=== PATIENT | female | born 1930 | race Caucasian/White ===

== ENCOUNTER 2018-05-20 11:20 | Observation (INO) ==
[2018-05-20] MEDS ORDERED: Orphenadrine Inj 60 MG/2 ML Ampul IM ONE (12:01)
--- NOTE | 2018-05-20 12:02 | ED ---
HPI General Chief Complaint: Back Pain/Injury Stated Complaint: Back pain Time Seen by Provider: 05/20/18 11:47 Source: patient and family Mode of arrival: ambulatory Limitations: physical limitation (hard of hearing) History of Present Illness HPI Narrative: 87-year-old female presents to the emergency department for evaluation of low back pain that has been persistent since a fall approximately 1 week ago. Some of the history is obtained by the patient's 's caregiver. patient was in the emergency department approximately 1 week ago, had a CT which did not demonstrate a fracture. Patient was diagnosed with urinary tract infection and prescribed Macrobid. Patient currently has 5 pills left in her prescription bottle. Patient continues to have low back pain focused in the lower back without radiation of pain. Described as aching and '12 /10' in severity. Patient denies numbness or tingling of the groin, fever, chills, loss of bowel or bladder function. Patient states the pain is persistent but does not believe it has worsened. She denies excessive rest or activity. Says 2 days ago she went to her primary care physician who ordered meloxicam and gabapentin for her pain. Patient states that since she started taking gabapentin she has felt "dizzy". Her caregiver is concerned that patient may fall again resulting in worsening injury. The caregiver states she brought patient to the ED because her primary care physician was unable to see her today. MD Complaint: back pain Related Data Home Medications Medication Instructions Recorded Confirmed aspirin [Aspir-81] 81 mg PO DAILY 05/14/18 05/20/18 calcium carbonate-vitamin D3 2 tab PO DAILY 05/14/18 05/20/18 [Calcium 600 + D(3)] carbamazepine 200 mg PO BID 05/14/18 05/20/18 doxazosin 8 mg PO BID 05/14/18 05/20/18 levothyroxine 100 mcg PO DAILY 05/14/18 05/20/18 metoprolol tartrate 25 mg PO BID 05/14/18 05/20/18 nifedipine 30 mg PO DAILY 05/14/18 05/20/18 spironolactone 50 mg PO DAILY PRN 05/14/18 05/20/18 calcium carbonate-vitamin D3 1 tab PO DAILY 05/20/18 05/20/18 [Calcium 600 with Vitamin D3] cholecalciferol (vitamin D3) 5,000 unit PO DAILY 05/20/18 05/20/18 [Vitamin D3] fluticasone 1 spray INTRANASAL DAILY 05/20/18 05/20/18 gabapentin 100 mg PO TID 05/20/18 05/20/18 lovastatin 40 mg PO DAILY 05/20/18 05/20/18 meloxicam 7.5 mg PO DAILY 05/20/18 05/20/18 multivitamin 1 tab PO DAILY 05/20/18 05/20/18 potassium gluconate 595 mg PO DAILY 05/20/18 05/20/18 prednisone 10 mg PO DAILY 05/20/18 05/20/18 vitamin B complex 1 tab PO DAILY 05/20/18 05/20/18 vitamin E 400 units PO DAILY 05/20/18 05/20/18 Previous Rx's Medication Instructions Recorded nitrofurantoin monohyd/m-cryst 100 mg PO BID 7 Days #14 cap 05/14/18 [Macrobid] Allergies Allergy/AdvReac Type Severity Reaction Status Date / Time penicillin G Allergy Severe Rash Verified 05/20/18 11:57 Review of Systems ROS: all other systems reviewed are negative [facility] Medical History Medical History Atherosclerosis (Acute) Atrioventricular bloc first degree (Acute) Breast CA (Acute) DJD (degenerative joint disease) (Acute) Epilepsy (Acute) Hypothyroid (Acute) Lumbar spinal stenosis (Acute) Pancreatic cyst (Acute) Peripheral neuropathy (Acute) UTI (urinary tract infection) (Acute) Vertigo (Acute) HTN (hypertension) (Acute) Hyperlipidemia (Acute) Surgical History Surgical History History of (Acute) Social History Social History Substance History: No History of Abuse Smoking Status: Former smoker How Often Do You Have a Drink Containing Alcohol: Never Recent Travel in [facility] within the Last 8 Weeks: No Recent Out of Country Travel within the Last 8 Weeks: No Immunization History Tetanus Immunization: Unsure Exam Narrative Exam Narrative: GENERAL: Well-developed, well-nourished in no apparent distress , resting comfortably in bed SKIN: Focused skin assessment warm/dry. HEAD: Atraumatic. Normocephalic. EYES: Pupils equal and round. No scleral icterus. No injection or drainage. ENT: No nasal bleeding or discharge. Mucous membranes pink and moist. NECK: Trachea midline. No JVD. CARDIOVASCULAR: Regular rate and rhythm. No murmur appreciated. RESPIRATORY: No accessory muscle use. Clear to auscultation. Breath sounds equal bilaterally. GASTROINTESTINAL: Abdomen soft, non-tender, nondistended. Hepatic and splenic margins not palpable. BACK: No CVA tenderness. No rash. No point tenderness on palpation of the spine. MUSCULOSKELETAL: No obvious deformities. No clubbing. No cyanosis. No edema. NEUROLOGICAL: Awake and alert. No obvious cranial nerve deficits. Motor grossly within normal limits. Normal speech. PSYCHIATRIC: Appropriate mood and affect; insight and judgment normal. Course Initial Documented Vital Signs Temperature 97.9 F 05/20/18 11:37 Pulse Rate 62 05/20/18 11:37 Respiratory Rate 18 05/20/18 11:37 Blood Pressure 163/74 H 05/20/18 11:37 Pulse Oximetry 98 05/20/18 11:37 Last Documented Vital Signs Temperature 97.9 F 05/20/18 11:37 Pulse Rate 63 05/20/18 15:41 Respiratory Rate 19 05/20/18 15:41 Blood Pressure 187/79 H 05/20/18 15:41 Pulse Oximetry 95 05/20/18 15:41 Medical Decision Making BILLY Attestation BILLY supervised visit: Yes Attestation: I, Dr. Morales, have reviewed the advance practice practitioner's documentation and am in agreement, met with the patient face to face, made the diagnosis, and the medical decision making was done by me. *My assessment and Findings: Patient is an 87-year-old female who presents with persistent urinary tract infection despite completing more than 5 days of antibiotics. She also complains of persistent back pain that has been intractable at home. She is hemodynamically stable. She has been admitted to the hospital for further evaluation and management. [facility] Narrative Medical decision making narrative: 87-year-old female presents to the emergency department for evaluation of low back pain that has been persistent this week. States she was also diagnosed with a urinary tract infection and is taking medication as prescribed. Her vital signs are stable today. Toradol and Norflex administered for pain. Initially ordered urinalysis. Urinalysis appears worse than previous evaluation. Ceftriaxone 2g administered. Ordered CT abdomen pelvis to rule out acute process of kidneys as a possible cause of her back pain as well. CT demonstrated multiple cysts. Because of patient's failed outpatient treatment of the urinary tract infection , will admit. Incidental findings on CT to include pancreatic mass, renal and splenic cysts, hepatic steatosis. My attending spoke with Dr. Layton who agreed to the admission. Medical Screen Exam Complete: Yes Emergency Medical Condition: Yes Medical Records Medical records reviewed: Yes I reviewed the patient's medical records. Patient presented to the emergency department May 14 diagnosed urinary tract infection. She also had a CT of the lumbar spine which showed degenerative disc disease. Lab Data Result diagrams: 05/20/18 13:57 05/20/18 13:57 Lab Results 05/20/18 05/20/18 05/20/18 Range/Units 12:53 13:57 13:57 WBC 8.0 (4.0-11.0) th/mm3 RBC 3.61 L (4.00-5.30) mil/mm3 Hgb 11.2 L (11.6-15.3) gm/dL Hct 32.9 L (35.0-46.0) % MCV 91.1 (80.0-100.0) fL MCH 31.1 (27.0-34.0) pg MCHC 34.1 (32.0-36.0) % RDW 13.6 (11.6-17.2) % Plt Count 197 (150-450) th/mm3 MPV 7.3 (7.0-11.0) fL Neut % (Auto) 75.9 H (16.0-70.0) % Lymph % (Auto) 12.0 (9.0-44.0) % [place] % (Auto) 9.5 H (0.0-8.0) % Eos % (Auto) 2.0 (0.0-4.0) % Baso % (Auto) 0.6 (0.0-2.0) % Neut # (Auto) 6.1 (1.8-7.7) th/mm3 Lymph # (Auto) 1.0 (1.0-4.8) th/mm3 [place] # (Auto) 0.8 (0.0-0.9) th/mm3 Eos # (Auto) 0.2 (0.0-0.4) th/mm3 Baso # (Auto) 0.0 (0.0-0.2) th/mm3 WBC Differential . Differential Comment Auto diff final Sodium 134 L (136-145) meq/L Potassium 3.7 (3.5-5.1) meq/L Chloride 97 L (98-107) meq/L Carbon Dioxide 28.1 (21.0-32.0) meq/L Anion Gap 9 (5-15) meq/L BUN 16 (7-18) mg/dL Creatinine 0.71 (0.50-1.00) mg/dL Estimated GFR 78 L (>89) mL/min Random Glucose 82 (74-106) mg/dL Calcium 8.6 (8.5-10.1) mg/dL Total Bilirubin 0.2 (0.2-1.0) mg/dL AST 52 H (15-37) U/L ALT 57 H (10-53) U/L Alkaline Phosphatase 84 (45-117) U/L Total Protein 6.2 L (6.4-8.2) g/dL Albumin 3.1 L (3.4-5.0) g/dL Urine Color Yellow (Yellw/Straw) Urine Clarity Hazy H (Clear) Urine pH 5.0 (5.0-8.5) Ur Specific [employer] 1.015 (1.002-1.035) Urine Protein Negative (Neg-Trace) mg/dL Urine Glucose (UA) Negative (Negative) mg/dL Urine Ketones 20 (Negative) mg/dL Urine Occult Blood Negative (Negative) Urine Nitrate Negative (Negative) Urine Bilirubin Negative (Negative) Urine Urobilinogen 2.0 H (Less than 2) mg/dL Ur Leukocyte Esterase Large H (Negative) Urine RBC 1 (0-3) /hpf Urine WBC 42 H (0-5) /hpf Ur Squamous Epith Cells 3 (0-5) /hpf Urine Bacteria Occasional H (None) /hpf Hyaline Casts 11 (0-3) /lpf Urine Mucus Few H (Occasional) /lpf Micro UA Comment Culture indicated Ur Microscopic Review Not Reportable Urine Culture Comments Culture indicated Imaging Data Radiologist's impression: Abdomen/Pelvis CT 05/20/18 13:35 CONCLUSION: 1. 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 Additional characterization with pancreatic protocol MRI and MRCP may be useful. 2. Renal cysts and splenic cyst. 3. Hepatic steatosis. 4. Prominent degenerative arthritic changes in the lumbar spine Discharge Plan Discharge Disposition Patient Disposition: 30 Still Patient Discharge Condition Condition: Stable Discharge Details Diagnosis: Intractable back pain, Failure of outpatient treatment, Urinary tract infection Physicians Team ED Provider: Vicki Morales ED Midlevel Provider: Vilma Mustafa Primary Care Provider: Mark Santizo Rxs /Orders / Referrals /Forms Prescriptions: No Action multivitamin Tablet 1 tab PO DAILY RF: 0 prednisone 10 mg Tablet 10 mg PO DAILY RF: 0 lovastatin 40 mg Tablet 40 mg PO DAILY RF: 0 meloxicam 7.5 mg Tablet 7.5 mg PO DAILY RF: 0 vitamin B complex Tablet 1 tab PO DAILY RF: 0 gabapentin 100 mg Capsule 100 mg PO TID RF: 0 fluticasone 50 mcg/actuation [place],Suspension 1 spray INTRANASAL DAILY RF: 0 vitamin E 400 unit Capsule 400 units PO DAILY RF: 0 potassium gluconate 595 mg (99 mg) Tablet 595 mg PO DAILY RF: 0 calcium carbonate-vitamin D3 [Calcium 600 with Vitamin D3] 600 mg(1,500mg) - 400 unit Capsule 1 tab PO DAILY RF: 0 cholecalciferol (vitamin D3) [Vitamin D3] 5,000 unit Tablet 5,000 unit PO DAILY RF: 0 nifedipine 30 mg Tablet Extended Release 30 mg PO DAILY RF: 0 metoprolol tartrate 25 mg Tablet 25 mg PO BID RF: 0 levothyroxine 100 mcg Capsule 100 mcg PO DAILY RF: 0 calcium carbonate-vitamin D3 [Calcium 600 + D(3)] 600 mg(1,500mg) -200 unit Tablet 2 tab PO DAILY RF: 0 aspirin [Aspir-81] 81 mg Tablet,Delayed Release (Dr/Ec) 81 mg PO DAILY RF: 0 carbamazepine 200 mg Tablet 200 mg PO BID RF: 0 doxazosin 8 mg Tablet 8 mg PO BID RF: 0 spironolactone 50 mg Tablet 50 mg PO DAILY PRN (Reason: Edema) RF: 0 nitrofurantoin monohyd/m-cryst [Macrobid] 100 mg capsule 100 mg PO BID 7 Days Qty: 14 RF: 0 Referrals: Mark Santizo MD [Primary Care Provider] - See Instructions Status ED Status: Pending Admission
[2018-05-20 13:25] LABS: Bacteria,Urine Occasional /hpf; Bilirubin,Urine Negative (Negative); Clarity,Urine Hazy (Clear); Color,Urine Yellow (Yellw/Straw); Glucose,Urine (UA) Negative (Negative); Hyaline Casts,Urine 11 /lpf (0-3); Leukocyte Esterase,Urine Large (Negative); Mucus,Urine Few /lpf (Occasional); Nitrite,Urine Negative (Negative); Specific Gravity,Urine 1.015 (1.002-1.035); Squamous Epithelial Cell,Urine 3 /hpf (0-5)
[2018-05-20] MEDS ORDERED: Sod Chloride 0.9% Inj 1,000 ML IV.SIG SCH (13:30)
[2018-05-20] MEDS ORDERED: Morphine Sulfate Inj 2 MG/ML Vial IV.PUSH ONE (13:35)
[2018-05-20 14:16] LABS: Baso % (Auto) 0.6 % (0.0-2.0); Eos # (Auto) 0.2 th/mm3 (0.0-0.4); Hematocrit 32.9 % (35.0-46.0); Hemoglobin 11.2 gm/dL (11.6-15.3); Mean Corpuscular HGB Conc 34.1 % (32.0-36.0); Mean Corpuscular Hemoglobin 31.1 pg (27.0-34.0); Mean Corpuscular Volume 91.1 fL (80.0-100.0); Mean Platelet Volume 7.3 fL (7.0-11.0); Mono # (Auto) 0.8 th/mm3 (0.0-0.9); Mono % (Auto) 9.5 % (0.0-8.0); Neut # (Auto) 6.1 th/mm3 (1.8-7.7); Neut % (Auto) 75.9 % (16.0-70.0); Platelet Count 197 th/mm3 (150-450); Red Blood Count 3.61 mil/mm3 (4.00-5.30); Red Cell Distribution Width 13.6 % (11.6-17.2)
[2018-05-20 14:29] LABS: Alanine Aminotransferase 57 U/L (10-53); Albumin 3.1 g/dL (3.4-5.0); Anion Gap 9 meq/L (5-15); Aspartate Aminotransferase 52 U/L (15-37); Blood Urea Nitrogen 16 mg/dL (7-18); Calcium 8.6 mg/dL (8.5-10.1); Carbon Dioxide 28.1 meq/L (21.0-32.0); Chloride 97 meq/L (98-107); Glomerular Filtration Rate 78 mL/min (>89); Glucose,Random 82 mg/dL (74-106); Potassium 3.7 meq/L (3.5-5.1); Sodium 134 meq/L (136-145)
[2018-05-20 14:31] LABS: Alkaline Phosphatase 84 U/L (45-117); Total Protein 6.2 g/dL (6.4-8.2)
--- NOTE | 2018-05-20 16:03 | CT ---
EXAM DATE: 05/20/2018 3:44 PM EDT AGE/SEX: 87 years / Female INDICATIONS: Abdominal and back pain. CLINICAL DATA: This is the patient's initial encounter. Patient reports that signs and symptoms have been present for 1 day and indicates a pain score of 3/10. MEDICAL/SURGICAL HISTORY: Cardiovascular disease. Hypertension. Carcinoma, breast. Spinal st enosis, pancreatic cyst. section. ORAL CONTRAST: No oral contrast ingested. RADIATION DOSE: 15.77 CTDI (mGy) COMPARISON: No prior exams available for comparison. TECHNIQUE: Multiple contiguous axial images were obtained through the abdomen and pelvis following b olus infusion of 85 ml Omnipaque 350 (iohexol) nonionic water-soluble contrast as a single exam dos e. No oral contrast ingested. Using automated exposure control and adjustment of the mA and/or kV ac cording to patient size, radiation dose was kept as low as reasonably achievable to obtain optimal di agnostic quality images. DICOM format image data is available electronically for review and comparis on. FINDINGS: Lower Lungs: The visualized lower lungs are clear. Liver: Diffusely diminished hepatic attenuation suggesting steatosis. No evidence of focal mass or bi liary ductal dilatation. Spleen: Splenic cyst. Pancreas: Bilobed cystic mass process in the proximal pancreas with a dominant lobe measuring 3.3 cm with smaller lobule measuring about 14 mm. Mild prominence of the pancreatic duct. No peripancreatic inflammatory changes. Kidneys: Bilateral renal cysts, largest a 8.5 cm cyst arising in the apex of the left kidney. No ashlyn dence of stone or hydronephrosis. Adrenal Glands: Unremarkable. Aorta: Atherosclerotic changes and slight distal aortic ectasia. Bowel/Mesentery: Colonic diverticulosis. No abnormal dilatation of bowel. No focal wall thickening o r inflammatory changes. Abdominal Wall: Intact. Retroperitoneum: No evidence of adenopathy in the retrocrural, para-aortic, or deep pelvic regions. Bladder: Contours are smooth. Reproductive Organs: Pessary in place. No evidence of pelvic mass or free fluid. Inguinal: The inguinal region is unremarkable without evidence of adenopathy. Bony Structures: Prominent degenerative changes in the lumbar spine. Mild degenerative changes in th e hips. CONCLUSION: 1. 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 Additional characterization with pancreat ic protocol MRI and MRCP may be useful. 2. Renal cysts and splenic cyst. 3. Hepatic steatosis. 4. Prominent degenerative arthritic changes in the lumbar spine Electronically signed by: Zohaib Meyer MD 05/20/2018 4:02 PM EDT
--- NOTE | 2018-05-20 16:53 | P.HP ---
History of Present Illness Primary Care Physician: Mark Santizo MD History of Present Illness: 87-year-old white female being admitted for intractable low back pain. Patient was in her usual state of health until about a little over week ago when she had a mechanical fall. She then proceeded to the emergency department 2 days later where she had a lumbar CT scan that showed severe spinal stenosis at L1 and S5. She was discharged home with Macrobid for a pansensitive E. coli UTI. Her urinary retention symptoms had improved significantly but her low back pain progressed with time and today she was not able to ambulate on her own. Her abrasive grinder is at the bedside and says she needed considerable assistance from multiple persons which is not her baseline. Her UTI from the last visit showed a pansensitive E. coli. Patient denies any dysuria or urinary urgency or hesitancy at this time. Emergency department she received morphine and a shot of Rocephin. The urine sample that was collected was a dirty catch. Family history: Not contributory at this time given the patient is 87 years old. Review of Systems All other systems reviewed negative except as stated in HPI PMFSH - History History Provided By: Patient - Medical History Medical History: Medical History (Last Reviewed 05/20/18 @ 16:58 by Grant Do MD) Atherosclerosis Atrioventricular bloc first degree Breast CA DJD (degenerative joint disease) Epilepsy HTN (hypertension) Hyperlipidemia Hypothyroid Lumbar spinal stenosis Pancreatic cyst Peripheral neuropathy UTI (urinary tract infection) Vertigo - Surgical History Surgical History: Surgical History (Last Reviewed 05/20/18 @ 16:58 by Grant Do MD) History of - Social History I have reviewed the patient's Social History: Yes - Tobacco History Smoking Status: Former smoker - Alcohol History How Often Do You Have a Drink Containing Alcohol: Never - Substance Use History Substance History: No History of Abuse - Travel History Recent Travel in the [place] Within the Last 8 Weeks: No Recent Travel Out of the Country Within the Last 8 Weeks: No - Immunization History Tetanus Immunization: Unsure Medications and Allergies Active Medications: Active Medications Sodium Chloride (Ns Inj) 1,000 mls @ 0 mls/hr IV.SIG BOLUS LIAM Last Infusion: 05/20/18 14:41 Dose: Infused Sodium Chloride (Ns Flush) 2 ml IV.FLUSH BID LIAM Sodium Chloride (Ns Flush) 2 ml IV.FLUSH PRN PRN PRN Reason: FLUSH AFTER USING IV ACCESS Allergies Allergy/AdvReac Type Severity Reaction Status Date / Time penicillin G Allergy Severe Rash Verified 05/20/18 11:57 Home Medications Medication Instructions Recorded Confirmed Type aspirin [Aspir-81] 81 mg PO DAILY 05/14/18 05/20/18 History calcium carbonate-vitamin D3 2 tab PO DAILY 05/14/18 05/20/18 History [Calcium 600 + D(3)] carbamazepine 200 mg PO BID 05/14/18 05/20/18 History doxazosin 8 mg PO BID 05/14/18 05/20/18 History levothyroxine 100 mcg PO DAILY 05/14/18 05/20/18 History metoprolol tartrate 25 mg PO BID 05/14/18 05/20/18 History nifedipine 30 mg PO DAILY 05/14/18 05/20/18 History spironolactone 50 mg PO DAILY PRN 05/14/18 05/20/18 History calcium carbonate-vitamin D3 1 tab PO DAILY 05/20/18 05/20/18 History [Calcium 600 with Vitamin D3] cholecalciferol (vitamin D3) 5,000 unit PO DAILY 05/20/18 05/20/18 History [Vitamin D3] fluticasone 1 spray INTRANASAL DAILY 05/20/18 05/20/18 History gabapentin 100 mg PO TID 05/20/18 05/20/18 History lovastatin 40 mg PO DAILY 05/20/18 05/20/18 History meloxicam 7.5 mg PO DAILY 05/20/18 05/20/18 History multivitamin 1 tab PO DAILY 05/20/18 05/20/18 History potassium gluconate 595 mg PO DAILY 05/20/18 05/20/18 History prednisone 10 mg PO DAILY 05/20/18 05/20/18 History vitamin B complex 1 tab PO DAILY 05/20/18 05/20/18 History vitamin E 400 units PO DAILY 05/20/18 05/20/18 History Exam Vital signs: Vital Signs 05/20/18 11:37 05/20/18 11:41 05/20/18 15:41 Temperature 97.9 F Pulse Rate 62 64 63 Respiratory Rate 18 22 19 Blood Pressure 163/74 H 152/70 H 187/79 H Pulse Oximetry 98 97 95 Intake & Output 05/19/18 05/20/18 05/20/18 18:59 06:59 18:59 Intake Total 1100 / 1100 Balance 1100 / 1100 Weight 70.307 kg Intake: IV 1100 / 1100 NS Inj 1,000 ML @ Wide Open IV. 1000 / 1000 SIG BOLUS LIAM Rx#:[id number] Rocephin Inj 2,000 MG In NS Inj 100 / 100 100 ML @ 200 mls/hr IV.SIG ONCE ONE Rx#:[id number] Narrative: VS: afebrile GENERAL: Elderly female lying in bed, mild distress secondary to back pain SKIN: Warm and dry. EYES: No scleral icterus. No injection or drainage. ENT: No nasal bleeding or discharge. Patient is profoundly hard of hearing. CARDIOVASCULAR: Regular rate and rhythm. no murmurs RESPIRATORY: No accessory muscle use. Clear to auscultation. Breath sounds equal bilaterally. GASTROINTESTINAL: Abdomen soft, non-tender, nondistended. Extremities: No clubbing, cyanosis, or edema. No obvious deformities. MUSCULOSKELETAL: Has adequate muscle bulk and tone for her age and habitus. Has moderate tenderness to palpation diffusely over the lumbar spine and paraspinal areas. Has 3/5 straight leg raise strength bilaterally, 5/5 proximal upper extremity strength NEUROLOGICAL: Awake and alert. No obvious cranial nerve deficits. No facial droop nor slurred speech noted. PSYCHIATRIC: Appropriate mood and affect; insight and judgment normal. Results - Labs CBC & Chem 7: 05/20/18 13:57 05/20/18 13:57 Labs: Laboratory Results - last 24 hr 05/20/18 05/20/18 05/20/18 12:53 13:57 13:57 WBC 8.0 RBC 3.61 L Hgb 11.2 L Hct 32.9 L MCV 91.1 MCH 31.1 MCHC 34.1 RDW 13.6 Plt Count 197 MPV 7.3 Neut % (Auto) 75.9 H Lymph % (Auto) 12.0 [place] % (Auto) 9.5 H Eos % (Auto) 2.0 Baso % (Auto) 0.6 Neut # (Auto) 6.1 Lymph # (Auto) 1.0 [place] # (Auto) 0.8 Eos # (Auto) 0.2 Baso # (Auto) 0.0 WBC Differential . Differential Comment Auto diff final Sodium 134 L Potassium 3.7 Chloride 97 L Carbon Dioxide 28.1 Anion Gap 9 BUN 16 Creatinine 0.71 Estimated GFR 78 L Random Glucose 82 Calcium 8.6 Total Bilirubin 0.2 AST 52 H ALT 57 H Alkaline Phosphatase 84 Total Protein 6.2 L Albumin 3.1 L Urine Color Yellow Urine Clarity Hazy H Urine pH 5.0 Ur Specific [place] 1.015 Urine Protein Negative Urine Glucose (UA) Negative Urine Ketones 20 Urine Occult Blood Negative Urine Nitrate Negative Urine Bilirubin Negative Urine Urobilinogen 2.0 H Ur Leukocyte Esterase Large H Urine RBC 1 Urine WBC 42 H Ur Squamous Epith Cells 3 Urine Bacteria Occasional H Hyaline Casts 11 Urine Mucus Few H Micro UA Comment Culture indicated Ur Microscopic Review Not Reportable Urine Culture Comments Culture indicated - Imaging Impressions Abdomen/Pelvis CT 05/20/18 13:35 CONCLUSION: 1. 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 Additional characterization with pancreatic protocol MRI and MRCP may be useful. 2. Renal cysts and splenic cyst. 3. Hepatic steatosis. 4. Prominent degenerative arthritic changes in the lumbar spine Caprini VTE Risk Assessment Caprini VTE Risk Assessment: Moderate/High Risk (score >= 2) Caprini Risk Assessment Model: Point Value = 1 Point Value = 2 Point Value = 3 Point Value = 5 Age 41-60 Minor surgery BMI > 25 kg/m2 Swollen legs Varicose veins or History of unexplained or recurrent spontaneous Oral contraceptives or hormone replacement Sepsis (< 1 month) Serious lung disease, including pneumonia (< 1 month) Abnormal pulmonary function Acute myocardial infarction Congestive heart failure (< 1 month) History of inflammatory bowel disease Medical patient at bed rest Age 61-74 Arthroscopic surgery Major open surgery (> 45 min) Laparoscopic surgery (> 45 min) Malignancy Confined to bed (> 72 hours) Immobilizing plaster cast Central venous access Age >= 75 History of VTE Family history of VTE Factor V Leiden Prothrombin [id number] Lupus anticoagulant Anticardiolipin antibodies Elevated serum homocysteine Heparin-induced thrombocytopenia Other congenital or acquired thrombophilia Stroke (< 1 month) Elective arthroplasty Hip, pelvis, or leg fracture Acute spinal cord injury (< 1 month) Prophylaxis Regimen: Total Risk Factor Score Risk Level Prophylaxis Regimen 0-1 Low Early ambulation 2 Moderate Order ONE of the following: *Sequential Compression Device (SCD) *Heparin 5000 units SQ BID 3-4 Higher Order ONE of the following medications: *Heparin 5000 units SQ TID *Enoxaparin/Lovenox 40 mg SQ daily (WT < 150 kg, CrCl > 30 mL/min) *Enoxaparin/Lovenox 30 mg SQ daily (WT < 150 kg, CrCl > 10-29 mL/min) *Enoxaparin/Lovenox 30 mg SQ BID (WT < 150 kg, CrCl > 30 mL/min) AND/OR *Sequential Compression Device (SCD) 5 or more Highest Order ONE of the following medications: *Heparin 5000 units SQ TID (Preferred with Epidurals) *Enoxaparin/Lovenox 40 mg SQ daily (WT < 150 kg, CrCl > 30 mL/min) *Enoxaparin/Lovenox 30 mg SQ daily (WT < 150 kg, CrCl > 10-29 mL/min) *Enoxaparin/Lovenox 30 mg SQ BID (WT < 150 kg, CrCl > 30 mL/min) AND *Sequential Compression Device (SCD) Assessment and Plan - Plan The 87-year-old female being admitted for intractable low back pain. Intractable low back pain -I suspect this is largely due to the patient's recent injury compounded on top of her severe stenosis based upon her most recent lumbar spine CT done within the last 10 days. I would like to give dexamethasone at this time however she seems to be on oral prednisone daily for now. - neurosurgery consultation to see if surgical intervention or direct spinal facet injections would be beneficial in this patient. We will start a Lidoderm patch, hold off on home mobic in light of possible intervention Recent UTI - finish macrobid tx, pansensitive e.coli epilepsy Peripheral neuropathy Continue home carbamazepine and gabapentin Hypertension Continue home metoprolol and spironolactone only MARTA llamas as VTE prophx due to possible surgery and BL LE edema
[2018-05-20] MEDS: Lidocaine 5% Patch T-DERMAL SCH (17:39)
[2018-05-20] MEDS ORDERED: Enoxaparin Inj 30 MG/0.3 ML Syringe SQ SCH (18:00)
[2018-05-20] MEDS: Gabapentin 100 MG Capsule PO SCH (18:18)
[2018-05-20] MEDS: Spironolactone 50 MG Tablet PO SCH (18:30)
[2018-05-20] MEDS: Metoprolol Tartrate 25 MG Tablet PO SCH (22:07)
[2018-05-20] MEDS: carBAMazepine 200 MG Tablet PO SCH (22:07)
[2018-05-20] MEDS: Doxazosin 4 MG Tablet PO SCH (22:07)
[2018-05-21] MEDS: Levothyroxine 100 MCG Tablet PO SCH (06:39)
[2018-05-21] MEDS ORDERED: POTASSIUM GLUCONATE 595 MG PO SCH (09:00)
[2018-05-21] MEDS ORDERED: LEVOTHYROXINE 100 MCG PO SCH (09:00)
[2018-05-21] MEDS: Lidocaine 5% Patch T-DERMAL SCH (09:18)
[2018-05-21] MEDS: Vitamin B Complex/Vitamin C Tablet PO SCH (09:19)
[2018-05-21] MEDS: Gabapentin 100 MG Capsule PO SCH ×3 (09:19→18:14)
[2018-05-21] MEDS: Metoprolol Tartrate 25 MG Tablet PO SCH ×2 (09:20→21:03)
[2018-05-21] MEDS: Doxazosin 4 MG Tablet PO SCH ×2 (09:20→21:02)
[2018-05-21] MEDS: Spironolactone 50 MG Tablet PO SCH (09:20)
[2018-05-21] MEDS: predniSONE 10 MG Tablet PO SCH (09:20)
[2018-05-21] MEDS: carBAMazepine 200 MG Tablet PO SCH ×2 (09:20→21:02)
[2018-05-21] MEDS: Nitrofurantoin Monohydrate-Macrocrystal 100 MG Capsule PO SCH ×2 (09:21→18:14)
[2018-05-21] MEDS: Calcium/Vitamin D 250/125 MG Tablet PO SCH ×2 (09:22→21:03)
--- NOTE | 2018-05-21 11:25 | P.PN ---
Subjective Interval history: Nursing denies any deterioration since last night. Nursing reports and the patient affirms that the Lidoderm patch does not truly help her pain. Physical Exam Vital signs: Vital Signs 05/20/18 11:37 05/20/18 11:41 05/20/18 15:41 Temperature 97.9 F Pulse Rate 62 64 63 Respiratory Rate 18 22 19 Blood Pressure 163/74 H 152/70 H 187/79 H Pulse Oximetry 98 97 95 05/20/18 17:24 05/20/18 18:19 05/20/18 18:32 Temperature 97.8 F 97.8 F Pulse Rate 79 76 64 Respiratory Rate 22 16 16 Blood Pressure 216/86 H 212/88 H 145/68 H Pulse Oximetry 96 99 98 05/20/18 19:25 05/20/18 20:00 05/20/18 23:58 Temperature 97.8 F 98.7 F Pulse Rate 71 57 L Respiratory Rate 18 16 14 Blood Pressure 191/84 H 148/73 H Pulse Oximetry 92 L 96 05/21/18 04:00 05/21/18 07:51 Temperature 97.9 F 97.6 F Pulse Rate 58 L 60 Respiratory Rate 16 16 Blood Pressure 151/66 H 154/68 H Pulse Oximetry 96 95 Intake & Output 05/20/18 05/21/18 05/21/18 18:59 06:59 18:59 Intake Total 1100 / 1100 Balance 1100 / 1100 Weight 70.307 kg 70.2 kg Intake: IV 1100 / 1100 NS Inj 1,000 ML @ Wide Open IV. 1000 / 1000 SIG BOLUS LIAM Rx#:[id number] Rocephin Inj 2,000 MG In NS Inj 100 / 100 100 ML @ 200 mls/hr IV.SIG ONCE ONE Rx#:[id number] Other: Date of Last Bowel Movement 05/18/18 Weight On Admission 70.2 kg Narrative: Patient lying in bed in a reclining position Has intact sensation to light finger touch over bilateral lower extremities Is seen getting up very slowly with physical therapist on her way to the stretcher to go to MRI Results - Labs CBC & Chem 7: 05/20/18 13:57 05/20/18 13:57 Laboratory Results - last 24 hr 05/20/18 05/20/18 05/20/18 12:53 13:57 13:57 WBC 8.0 RBC 3.61 L Hgb 11.2 L Hct 32.9 L MCV 91.1 MCH 31.1 MCHC 34.1 RDW 13.6 Plt Count 197 MPV 7.3 Neut % (Auto) 75.9 H Lymph % (Auto) 12.0 [place] % (Auto) 9.5 H Eos % (Auto) 2.0 Baso % (Auto) 0.6 Neut # (Auto) 6.1 Lymph # (Auto) 1.0 Johnson # (Auto) 0.8 Eos # (Auto) 0.2 Baso # (Auto) 0.0 WBC Differential . Differential Comment Auto diff final Sodium 134 L Potassium 3.7 Chloride 97 L Carbon Dioxide 28.1 Anion Gap 9 BUN 16 Creatinine 0.71 Estimated GFR 78 L Random Glucose 82 Calcium 8.6 Total Bilirubin 0.2 AST 52 H ALT 57 H Alkaline Phosphatase 84 Total Protein 6.2 L Albumin 3.1 L Urine Color Yellow Urine Clarity Hazy H Urine pH 5.0 Ur Specific [place] 1.015 Urine Protein Negative Urine Glucose (UA) Negative Urine Ketones 20 Urine Occult Blood Negative Urine Nitrate Negative Urine Bilirubin Negative Urine Urobilinogen 2.0 H Ur Leukocyte Esterase Large H Urine RBC 1 Urine WBC 42 H Ur Squamous Epith Cells 3 Urine Bacteria Occasional H Hyaline Casts 11 Urine Mucus Few H Micro UA Comment Culture indicated Ur Microscopic Review Not Reportable Urine Culture Comments Culture indicated - Imaging Impressions Abdomen/Pelvis CT 05/20/18 13:35 CONCLUSION: 1. 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 Additional characterization with pancreatic protocol MRI and MRCP may be useful. 2. Renal cysts and splenic cyst. 3. Hepatic steatosis. 4. Prominent degenerative arthritic changes in the lumbar spine Assessment and Plan - Plan The 87-year-old female being admitted for intractable low back pain. Intractable low back pain - I suspect this is largely due to the patient's recent injury compounded on top of her severe stenosis based upon her most recent lumbar spine CT done within the last 10 days. I would like to give dexamethasone at this time however she seems to be on oral prednisone daily for now. - neurosurgery consultation to see if surgical intervention or direct spinal facet injections would be beneficial in this patient. - hold off on home mobic in light of possible intervention -MRI ordered by NSG - nasal calcitonin ordered for pain now that NSG concludes compression fx Recent UTI - finish macrobid tx, pansensitive e.coli epilepsy Peripheral neuropathy Continue home carbamazepine and gabapentin Hypertension Continue home metoprolol and spironolactone lovenox Discharge Planning: discharge pending NSG and PT recs
--- NOTE | 2018-05-21 13:31 | MR ---
EXAM DATE: 05/21/2018 12:32 PM EDT AGE/SEX: 87 years / Female INDICATIONS: . Lower back pain. Post fall. CLINICAL DATA: This is the patient's subsequent encounter. Patient reports that signs and symptoms h ave been present for 3 days and indicates a pain score of 3/10. MEDICAL/SURGICAL HISTORY: Hypertension. section. bilateral knee surgery COMPARISON: [facility], CT LUMBAR SPINE W/O CONTRAST, 05/14/2018. . TECHNIQUE: Multiplanar, multisequence MRI of the lumbar spine was performed without contrast. Patie nt was scanned in a sitting position; neutral, flexion, and extension scans were performed in the sa gittal plane. FINDINGS: ALIGNMENT: Vertebral bodies are satisfactorily aligned without evidence of listhesis. FACET AND OSSEOUS STRUCTURES: Mild superior endplate depression with underlying edema is identified in the L1 vertebral body. Lumbar vertebral bodies are otherwise intact. Moderate to severe arthropathy is identified at L4-5 and L5-S1. INTERVERTEBRAL DISC SPACES: Degenerative disc disease ranging from moderate to severe is noted. T12-L1: Unremarkable. L1-2: Disc space narrowing with mild annular bulging but no evidence of disc herniation. L2-3: Moderate degenerative disc disease with disc space narrowing and marginal spondylosis. There is mild broad-based disc osteophyte complex with mild bilateral foraminal encroachment and anterior epi dural effacement. There is no significant spinal stenosis. L3-4: Moderate degenerative disc disease with disc space narrowing and spondylosis. There is posterio r lateral and lateral disc osteophyte complex with mild foraminal encroachment and mild anterior epid ural effacement. There is mild spinal stenosis. L4-5: Moderate degenerative disc disease with disc space narrowing. There is marginal disc osteophyte complex with evidence of moderate central spinal stenosis. Mild foraminal encroachment is noted bila terally. L5-S1: Moderate degenerative disc disease with broad-based disc osteophyte complex. There is moderate to severe spinal stenosis with moderate to severe bilateral foraminal encroachment. NEUROLOGIC STRUCTURES: Central crowding and mild compression of the nerve roots at L5-S1 secondary to degenerative disc disease and hypertrophic facet arthropathy. Significant bilateral foraminal encroachment at L5-S1 with nerve root compression. . CONCLUSION: 1. Mild acute compression fracture of L1 with superior endplate depression. 2. Degenerative disc disease with associated hypertrophic facet arthropathy at L4-5 and L5-S1 causin g moderate to severe central spinal stenosis. 3. Significant bilateral foraminal encroachment at L5-S1 4. No evidence of acute disc herniation Electronically signed by: Mario Brantley MD 05/21/2018 1:30 PM EDT
--- NOTE | 2018-05-21 16:01 | P.CONNS ---
History of Present Illness Primary Care Provider: Mark Santizo MD History of Present Illness: 87-year-old female presents to the emergency department for evaluation of low back pain that has been persistent since a fall approximately 1 week ago. Patient was in the emergency department approximately 1 week ago, had a CT of the lumbar spine which revealed multilevel spinal stenosis from degenerative changes and facet hypertrophy. Patient was diagnosed with urinary tract infection and prescribed Macrobid. Patient continues to have low back pain focused in the lower back without radiation of pain. Described as aching and 10/ 10 in severity. Patient denies numbness or tingling of the groin, fever, chills , loss of bowel or bladder function although after intramuscular injection in the right buttock she says she has noticed some anterolateral thigh numbness. Her caregiver is concerned that patient may fall again resulting in worsening injury. Review of Systems All other systems reviewed negative except as stated in HPI PMFSH - History History Provided By: Patient - Medical History Medical History: Medical History (Last Reviewed 05/21/18 @ 15:55 by Agustin Washington MD) Atherosclerosis Atrioventricular bloc first degree Breast CA DJD (degenerative joint disease) Epilepsy HTN (hypertension) Hyperlipidemia Hypothyroid Lumbar spinal stenosis Pancreatic cyst Peripheral neuropathy UTI (urinary tract infection) Vertigo - Surgical History Surgical History: Surgical History (Last Reviewed 05/21/18 @ 15:55 by Agustin Washington MD) History of - Tobacco History Second Hand Smoke Exposure: No Tobacco Use In Past 30 Days: No Smoking Status: Former smoker Tobacco Type: Cigarettes - Alcohol History How Often Do You Have a Drink Containing Alcohol: Never - Substance Use History Substance History: No History of Abuse - Travel History Recent Travel in the [place] Within the Last 8 Weeks: No Recent Travel Out of the Country Within the Last 8 Weeks: No - Immunization History Tetanus Immunization: Unsure Medications and Allergies Active Medications: Active Medications Calcium/Vitamin D (Oscal With D 250/125 Mg) 2 tab PO BID [facility] Last Admin: 05/21/18 09:22 Dose: 2 tab Carbamazepine (Tegretol) 200 mg PO BID [facility] Last Admin: 05/21/18 09:20 Dose: 200 mg Doxazosin Mesylate (Cardura) 8 mg PO BID [facility] Last Admin: 05/21/18 09:20 Dose: 8 mg Enalaprilat (Vasotec Inj) 1.25 mg IV.PUSH Q4HR PRN PRN Reason: SBP>180, DBP>110 Enoxaparin Sodium (Lovenox Inj) 30 mg SQ Q24HR [facility] Last Admin: 05/20/18 18:17 Dose: 30 mg Fluticasone Propionate (Flonase Nasal [place]) 1 spray EACH NARE DAILY [facility] Last Admin: 05/21/18 10:26 Dose: Not Given Gabapentin (Neurontin) 100 mg PO TID [facility] Last Admin: 05/21/18 13:28 Dose: 100 mg Sodium Chloride (Ns Inj) 1,000 mls @ 0 mls/hr IV.SIG BOLUS [facility] Last Infusion: 05/20/18 14:41 Dose: Infused Levothyroxine Sodium (Synthroid) 100 mcg PO DAILY@0600 [facility] Last Admin: 05/21/18 06:39 Dose: 100 mcg Lidocaine HCl (Lidoderm 5% Patch.12 Hr) 1 patch T-DERMAL DAILY [facility] Last Admin: 05/21/18 09:18 Dose: 1 patch Metoprolol Tartrate (Lopressor) 25 mg PO BID [facility] Last Admin: 05/21/18 09:20 Dose: 25 mg Multivitamins (Theragran) 1 tab PO DAILY [facility] Last Admin: 05/21/18 10:25 Dose: 1 tab Nifedipine (Procardia Xl) 30 mg PO DAILY [facility] Last Admin: 05/21/18 09:19 Dose: 30 mg Nitrofurantoin Macrocrystals (Macrobid) 100 mg PO BIDPC [facility] Stop: 05/23/18 23:59 Last Admin: 05/21/18 09:21 Dose: 100 mg Patch Removal (Remove Old Patch) 1 each T-DERMAL HS [facility] Last Admin: 05/20/18 22:07 Dose: 1 each Pt:Potassium (Gluconate 595 Mg) 0 each PO DAILY [facility] Pravastatin Sodium (Pravachol) 40 mg PO DAILY [facility] Last Admin: 05/21/18 09:20 Dose: 40 mg Prednisone (Deltasone) 10 mg PO DAILY [facility] Last Admin: 05/21/18 09:20 Dose: 10 mg Sodium Chloride (Ns Flush) 2 ml IV.FLUSH BID [facility] Last Admin: 05/21/18 10:25 Dose: 2 ml Sodium Chloride (Ns Flush) 2 ml IV.FLUSH PRN PRN PRN Reason: FLUSH AFTER USING IV ACCESS Spironolactone (Aldactone) 50 mg PO DAILY [facility] Last Admin: 05/21/18 09:20 Dose: 50 mg Tramadol HCl (Ultram) 50 mg PO Q6H PRN PRN Reason: Acute Pain Last Admin: 05/21/18 10:35 Dose: 50 mg Vitamin B Complex/Vitamin C ([place]bee C) 1 tab PO DAILY [facility] Last Admin: 05/21/18 09:19 Dose: 1 tab Vitamin D (Vitamin D3) 5,000 unit PO DAILY [facility] Last Admin: 05/21/18 09:19 Dose: 5,000 unit Vitamin E (Vitamin E) 400 unit PO DAILY [facility] Last Admin: 05/21/18 09:19 Dose: 400 unit Allergies Allergy/AdvReac Type Severity Reaction Status Date / Time penicillin G Allergy Severe Rash Verified 05/20/18 11:57 Home Medications Medication Instructions Recorded Confirmed Type aspirin [Aspir-81] 81 mg PO DAILY 05/14/18 05/20/18 History calcium carbonate-vitamin D3 2 tab PO DAILY 05/14/18 05/20/18 History [Calcium 600 + D(3)] carbamazepine 200 mg PO BID 05/14/18 05/20/18 History doxazosin 8 mg PO BID 05/14/18 05/20/18 History levothyroxine 100 mcg PO DAILY 05/14/18 05/20/18 History metoprolol tartrate 25 mg PO BID 05/14/18 05/20/18 History nifedipine 30 mg PO DAILY 05/14/18 05/20/18 History spironolactone 50 mg PO DAILY PRN 05/14/18 05/20/18 History calcium carbonate-vitamin D3 1 tab PO DAILY 05/20/18 05/20/18 History [Calcium 600 with Vitamin D3] cholecalciferol (vitamin D3) 5,000 unit PO DAILY 05/20/18 05/20/18 History [Vitamin D3] fluticasone 1 spray INTRANASAL DAILY 05/20/18 05/20/18 History gabapentin 100 mg PO TID 05/20/18 05/20/18 History lovastatin 40 mg PO DAILY 05/20/18 05/20/18 History meloxicam 7.5 mg PO DAILY 05/20/18 05/20/18 History multivitamin 1 tab PO DAILY 05/20/18 05/20/18 History potassium gluconate 595 mg PO DAILY 05/20/18 05/20/18 History prednisone 10 mg PO DAILY 05/20/18 05/20/18 History vitamin B complex 1 tab PO DAILY 05/20/18 05/20/18 History vitamin E 400 units PO DAILY 05/20/18 05/20/18 History Exam Vital signs: Vital Signs 05/20/18 17:24 05/20/18 18:19 05/20/18 18:32 Temperature 97.8 F 97.8 F Pulse Rate 79 76 64 Respiratory Rate 22 16 16 Blood Pressure 216/86 H 212/88 H 145/68 H Pulse Oximetry 96 99 98 05/20/18 19:25 05/20/18 20:00 05/20/18 23:58 Temperature 97.8 F 98.7 F Pulse Rate 71 57 L Respiratory Rate 18 16 14 Blood Pressure 191/84 H 148/73 H Pulse Oximetry 92 L 96 05/21/18 04:00 05/21/18 07:51 05/21/18 15:42 Temperature 97.9 F 97.6 F 97.5 F L Pulse Rate 58 L 60 68 Respiratory Rate 16 16 16 Blood Pressure 151/66 H 154/68 H 170/107 H Pulse Oximetry 96 95 92 L Intake & Output 05/20/18 05/21/18 05/21/18 18:59 06:59 18:59 Intake Total 1100 / 1100 Balance 1100 / 1100 Weight 70.307 kg 70.2 kg Intake: IV 1100 / 1100 NS Inj 1,000 ML @ Wide Open IV. 1000 / 1000 SIG BOLUS LIAM Rx#:[id number] Rocephin Inj 2,000 MG In NS Inj 100 / 100 100 ML @ 200 mls/hr IV.SIG ONCE ONE Rx#:[id number] Other: Date of Last Bowel Movement 05/18/18 05/18/18 Weight On Admission 70.2 kg - Constitutional no acute distress, obese - Routine HEENT Exam Head: Present: normocephalic, atraumatic Eye: Present: EOMI, PERRL ENT: Present: mucous membranes moist, oropharynx clear, external ear normal - Routine Neck Exam Present: supple, full ROM, trachea midline, trauma (Anterior cervical ecchymosis since the fall approximately a week ago) - Routine Respiratory Exam Present: CTA bilaterally - Routine Cardiovascular Exam Present: RRR, S1, S2 - Routine Abdominal Exam Present: soft, normoactive bowel sounds - Routine Extremities Exam Present: full ROM - Routine Skin Exam Present: intact, ecchymosis - Routine Neurological Exam Present: oriented X3, CN II-XII intact (Very hard of hearing even with the hearing aids in place), normal reflexes, moving all extremities, normal speech Results - Laboratory Findings CBC and BMP: 05/20/18 13:57 05/20/18 13:57 Abnormal lab findings: Abnormal Labs 05/20/18 05/20/18 05/20/18 12:53 13:57 13:57 RBC 3.61 L Hgb 11.2 L Hct 32.9 L Neut % (Auto) 75.9 H [place] % (Auto) 9.5 H Sodium 134 L Chloride 97 L Estimated GFR 78 L AST 52 H ALT 57 H Total Protein 6.2 L Albumin 3.1 L Urine Clarity Hazy H Urine Urobilinogen 2.0 H Ur Leukocyte Esterase Large H Urine WBC 42 H Urine Bacteria Occasional H Urine Mucus Few H - Diagnostic Findings Additional findings: Impressions Abdomen/Pelvis CT 05/20/18 13:35 CONCLUSION: 1. 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 Additional characterization with pancreatic protocol MRI and MRCP may be useful. 2. Renal cysts and splenic cyst. 3. Hepatic steatosis. 4. Prominent degenerative arthritic changes in the lumbar spine Lumbar Spine MRI 05/21/18 00:00 CONCLUSION: 1. Mild acute compression fracture of L1 with superior endplate depression. 2. 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 3. Significant bilateral foraminal encroachment at L5-S1 4. No evidence of acute disc herniation Assessment and Plan - Assessment (1) Intractable low back pain Code(s): M54.5 - Low back pain Status: Acute (2) Compression fracture of L1 lumbar vertebra Code(s): S32.010A - Wedge compression fracture of first lumbar vertebra, initial encounter for closed fracture Status: Acute (3) Lumbar stenosis with neurogenic claudication Code(s): M48.062 - Spinal stenosis, lumbar region with neurogenic claudication Status: Acute - Plan 87-year-old lady with intractable low back pain after a fall a week ago with complaints of inability to ambulate from the pain and some subjective weakness in the legs. She has some numbness in her anterolateral right thigh but no radicular symptoms. MRI scan lumbar spine reveals a mild L1 vertebral body compression fracture as well as moderate L3-4 and severe L4-5 and L5-S1 spinal stenosis from facet and ligamentum flavum hypertrophy. Discussed with the patient as well as and family at bedside's the findings and this point to recommend continued pain control and physical therapy to help her ambulate. If her pain/symptoms remain intractable then we could consider L1 kyphoplasty and lumbar laminectomy for multilevel spinal stenosis. Discussed with daughter who is out of state over the phone who relates to me that she would like to consider intervention if her pain does not improve over the next few days with medical management.
[2018-05-21] MEDS: Calcitonin Salmon Nasal 200 UNITS/Actuation - (3.7 ML) NASAL SCH (18:23)
[2018-05-22] MEDS: Levothyroxine 100 MCG Tablet PO SCH (05:06)
[2018-05-22] MEDS: Spironolactone 50 MG Tablet PO SCH (09:22)
[2018-05-22] MEDS: Doxazosin 4 MG Tablet PO SCH ×2 (09:22→21:19)
[2018-05-22] MEDS: Metoprolol Tartrate 25 MG Tablet PO SCH ×2 (09:22→21:22)
[2018-05-22] MEDS: Lidocaine 5% Patch T-DERMAL SCH (09:25)
[2018-05-22] MEDS: predniSONE 10 MG Tablet PO SCH (09:25)
[2018-05-22] MEDS: Vitamin B Complex/Vitamin C Tablet PO SCH (09:26)
[2018-05-22] MEDS: Gabapentin 100 MG Capsule PO SCH ×3 (09:26→18:29)
[2018-05-22] MEDS: Calcium/Vitamin D 250/125 MG Tablet PO SCH ×2 (09:26→21:19)
[2018-05-22] MEDS: Nitrofurantoin Monohydrate-Macrocrystal 100 MG Capsule PO SCH ×2 (09:26→18:29)
[2018-05-22] MEDS: carBAMazepine 200 MG Tablet PO SCH ×2 (09:27→21:20)
[2018-05-22] MEDS: Calcitonin Salmon Nasal 200 UNITS/Actuation - (3.7 ML) NASAL SCH (10:46)
--- NOTE | 2018-05-22 14:31 | P.DCO ---
- Physical Therapy Order: Evaluate and treat, Improve ambulation, Strength and gait training - Home Health Nursing Order: Medical education, Signs/symptoms of disease process, Medication education-adverse effect, Nursing assessment with vital signs - Home Health Aide Order: To assist in: Bathing and personal care, industrial cook and meal prep - Business Dean Order: To evaluate: Living conditions/environment, Support services Order: To provide: Long range planning, Community services - Certification I have seen patient Danisha Phoenix on 05/22/18. My clinical findings support the need for the requested home health care services because: Limited mobility due to disease progression, Deconditioned with increased weakness, Medication compliance is questionable, Limited ability to care for self, Need for psychosocial assistance, Impaired cognition/judgement, High risk of falls I certify that my clinical findings support that this patient is homebound because: Impaired cognitive ability/safety, Unsteady gait/balance, Unsafe to leave home unassisted, Need for psychosocial assistance, Unable to use public transportation
--- NOTE | 2018-05-22 14:47 | P.PN ---
Subjective Interval history: She has seen sitting on side of bed eating breakfast. Her is present. She tells me that she is feeling much better and has been able to get up and walk some with physical therapy. Denies any numbness or pain in her legs. Still has some lower back pain. No chest pain or shortness of breath. No nausea vomiting or diarrhea-she is tolerating her as well. Physical Exam Vital signs: Vital Signs 05/21/18 15:42 05/21/18 20:00 05/21/18 23:56 Temperature 97.5 F L 97.0 F L 98.4 F Pulse Rate 68 52 L Respiratory Rate 16 18 18 Blood Pressure 170/107 H 159/70 H 144/74 H Pulse Oximetry 92 L 95 93 L 05/22/18 03:58 05/22/18 07:50 05/22/18 08:50 Temperature 96.9 F L 97.8 F Pulse Rate 62 70 Respiratory Rate 18 16 20 Blood Pressure 184/86 H 134/90 Pulse Oximetry 92 L 96 05/22/18 09:19 05/22/18 12:57 Temperature 98.2 F Pulse Rate 60 Respiratory Rate 20 Blood Pressure 205/96 H 200/88 H Pulse Oximetry 96 Intake & Output 05/21/18 05/22/18 05/22/18 18:59 06:59 18:59 Intake Total 480 / 480 20 / 20 Balance 480 / 480 20 / 20 Intake: Oral 480 / 480 20 / 20 Other: # Voids 3 2 Date of Last Bowel Movement 05/18/18 Narrative: GENERAL: Well-nourished, well-developed adult female in no obvious distress. SKIN: Warm and dry. HEAD: Atraumatic. Normocephalic. CARDIOVASCULAR: Regular rate and rhythm. RESPIRATORY: No accessory muscle use. Clear to auscultation. Breath sounds equal bilaterally. GASTROINTESTINAL: Abdomen soft, non-tender, non-distended. Positive bowel sounds. MUSCULOSKELETAL: Extremities without clubbing, cyanosis, or edema. No obvious deformities. No tenderness along lumbar spine. NEUROLOGICAL: Awake and alert. No obvious cranial nerve deficits. Motor grossly within normal limits. Normal speech. PSYCHIATRIC: Appropriate mood and affect; insight and judgment good. Results - Labs CBC & Chem 7: 05/20/18 13:57 05/20/18 13:57 Microbiology 05/20/18 12:53 Clean Catch Urine Urine Culture - Final 10-50,000 cfu/mL mixed gram positive lesly (probable contaminants) Assessment and Plan - Assessment (1) Impaired mobility and ADLs Code(s): Z74.09 - Other reduced mobility Status: Acute (2) Requires assistance with activities of daily living (ADL) Code(s): Z74.1 - Need for assistance with personal care Status: Acute (3) Knowledge deficit on medication regimen Status: Acute (4) Intractable low back pain Code(s): M54.5 - Low back pain Status: Acute (5) Compression fracture of L1 lumbar vertebra Code(s): S32.010A - Wedge compression fracture of first lumbar vertebra, initial encounter for closed fracture Status: Acute (6) Lumbar stenosis with neurogenic claudication Code(s): M48.062 - Spinal stenosis, lumbar region with neurogenic claudication Status: Acute - Plan The 87-year-old female being admitted for intractable low back pain. Intractable low back pain - I suspect this is largely due to the patient's recent injury compounded on top of her severe stenosis based upon her most recent lumbar spine CT done within the last 10 days. I would like to give dexamethasone at this time however she seems to be on oral prednisone daily for now. - neurosurgery consultation to see if surgical intervention or direct spinal facet injections would be beneficial in this patient. Neurosurgery is recommending conservative/medical management for now. If this fails they will consider surgical intervention. - hold off on home mobic in light of possible intervention -MRI ordered by NSG - nasal calcitonin ordered for pain now that NSG concludes compression fx -PT ordered -currently recommending discharge with home health and aide. Recent UTI - finish macrobid tx, pansensitive e.coli epilepsy Peripheral neuropathy Continue home carbamazepine and gabapentin Hypertension Continue home metoprolol and spironolactone DVT prophylaxis: Lovenox Discussed with: Patient, nurse, , case management. Patient seen with Dr. Toribio Discharge planning: Will likely discharge home with home health and PT services when safe to do so. Rolling walker and bedside commode order placed.
[2018-05-23] MEDS: Levothyroxine 100 MCG Tablet PO SCH (05:35)
[2018-05-23] MEDS: Lidocaine 5% Patch T-DERMAL SCH (09:06)
[2018-05-23] MEDS: Metoprolol Tartrate 25 MG Tablet PO SCH ×2 (09:06→22:24)
[2018-05-23] MEDS: Doxazosin 4 MG Tablet PO SCH ×2 (09:07→22:25)
[2018-05-23] MEDS: Calcium/Vitamin D 250/125 MG Tablet PO SCH ×2 (09:07→22:24)
[2018-05-23] MEDS: Spironolactone 50 MG Tablet PO SCH (09:07)
[2018-05-23] MEDS: Vitamin B Complex/Vitamin C Tablet PO SCH (09:07)
[2018-05-23] MEDS: Gabapentin 100 MG Capsule PO SCH ×3 (09:07→18:21)
[2018-05-23] MEDS: Calcitonin Salmon Nasal 200 UNITS/Actuation - (3.7 ML) NASAL SCH (09:08)
[2018-05-23] MEDS: predniSONE 10 MG Tablet PO SCH (09:08)
[2018-05-23] MEDS: carBAMazepine 200 MG Tablet PO SCH ×2 (09:08→22:23)
[2018-05-23] MEDS: Nitrofurantoin Monohydrate-Macrocrystal 100 MG Capsule PO SCH ×2 (09:09→18:20)
--- NOTE | 2018-05-23 15:34 | P.PN ---
Subjective Interval history: Patient is seen lying in bed. That she had some back pain this morning but has now gone away. No chest pain or shortness of breath. No nausea vomiting or diarrhea. She is looking forward to getting home soon. Physical Exam Vital signs: Vital Signs 05/22/18 15:41 05/22/18 21:15 05/22/18 23:37 Temperature 97.4 F L 97.5 F L Pulse Rate 69 64 65 Respiratory Rate 18 19 Blood Pressure 205/95 H 158/70 H 161/79 H Pulse Oximetry 93 L 97 05/23/18 04:00 05/23/18 12:53 Temperature 98.3 F 98.2 F Pulse Rate 62 68 Respiratory Rate 20 20 Blood Pressure 212/98 H 200/90 H Pulse Oximetry 98 Intake & Output 05/22/18 05/23/18 05/23/18 18:59 06:59 18:59 Intake Total 240 / 240 Balance 240 / 240 Intake: Oral 240 / 240 Other: # Voids 3 1 Narrative: GENERAL: Well-nourished, well-developed adult female in no obvious distress. SKIN: Warm and dry. HEAD: Atraumatic. Normocephalic. CARDIOVASCULAR: Regular rate and rhythm. RESPIRATORY: No accessory muscle use. Clear to auscultation. Breath sounds equal bilaterally. GASTROINTESTINAL: Abdomen soft, non-tender, non-distended. Positive bowel sounds. MUSCULOSKELETAL: Extremities without clubbing, cyanosis, or edema. No obvious deformities. No tenderness along lumbar spine. NEUROLOGICAL: Awake and alert. No obvious cranial nerve deficits. Motor grossly within normal limits. Normal speech. PSYCHIATRIC: Appropriate mood and affect; insight and judgment good. Results - Labs CBC & Chem 7: 05/20/18 13:57 05/20/18 13:57 Assessment and Plan - Assessment (1) Impaired mobility and ADLs Code(s): Z74.09 - Other reduced mobility Status: Acute (2) Requires assistance with activities of daily living (ADL) Code(s): Z74.1 - Need for assistance with personal care Status: Acute (3) Knowledge deficit on medication regimen Status: Acute (4) Intractable low back pain Code(s): M54.5 - Low back pain Status: Acute (5) Compression fracture of L1 lumbar vertebra Code(s): S32.010A - Wedge compression fracture of first lumbar vertebra, initial encounter for closed fracture Status: Acute (6) Lumbar stenosis with neurogenic claudication Code(s): M48.062 - Spinal stenosis, lumbar region with neurogenic claudication Status: Acute - Plan The 87-year-old female being admitted for intractable low back pain. Intractable low back pain - I suspect this is largely due to the patient's recent injury compounded on top of her severe stenosis based upon her most recent lumbar spine CT done within the last 10 days. I would like to give dexamethasone at this time however she seems to be on oral prednisone daily for now. - neurosurgery consultation to see if surgical intervention or direct spinal facet injections would be beneficial in this patient. Neurosurgery is recommending conservative/medical management for now. If this fails they will consider surgical intervention. - hold off on home mobic in light of possible intervention -MRI ordered by NSG - nasal calcitonin ordered for pain now that NSG concludes compression fx -PT ordered -currently recommending discharge with home health and aide. -[facility] consulted for placement of back brace to aid in stability. Recent UTI - finish macrobid tx, pansensitive e.coli epilepsy Peripheral neuropathy Continue home carbamazepine and gabapentin Hypertension Continue home metoprolol and spironolactone DVT prophylaxis: Lovenox Discussed with: Patient, nurse, , case management. Patient seen with Dr. Toribio Discharge planning: Will likely discharge home with home health and PT services when safe to do so. Rolling walker and bedside commode order placed.
[2018-05-24] MEDS: Levothyroxine 100 MCG Tablet PO SCH (06:14)
[2018-05-24 07:41] VITALS: RESP 18
[2018-05-24] MEDS: Calcium/Vitamin D 250/125 MG Tablet PO SCH (09:18)
[2018-05-24] MEDS: Doxazosin 4 MG Tablet PO SCH (09:19)
[2018-05-24] MEDS: Gabapentin 100 MG Capsule PO SCH ×2 (09:19→16:14)
[2018-05-24] MEDS: carBAMazepine 200 MG Tablet PO SCH (09:20)
[2018-05-24] MEDS: Lidocaine 5% Patch T-DERMAL SCH (09:33)
[2018-05-24] MEDS: predniSONE 10 MG Tablet PO SCH (09:35)
[2018-05-24] MEDS: Vitamin B Complex/Vitamin C Tablet PO SCH (09:36)
[2018-05-24] MEDS: Spironolactone 50 MG Tablet PO SCH (09:37)
[2018-05-24] MEDS: Metoprolol Tartrate 25 MG Tablet PO SCH (09:37)
[2018-05-24] MEDS: Calcitonin Salmon Nasal 200 UNITS/Actuation - (3.7 ML) NASAL SCH (11:56)
--- NOTE | 2018-05-24 13:01 | P.PN ---
Subjective Interval history: Patient is seen sitting in bed preparing to eat breakfast. Her is at the bedside. She tells me that she is doing well with no new pain. No nausea vomiting or diarrhea. No shortness of breath. She would like to go home today. Physical Exam Vital signs: Vital Signs 05/23/18 16:00 05/23/18 19:31 05/23/18 23:43 Temperature 97.6 F 97.6 F 97.5 F L Pulse Rate 50 L 54 L 60 Respiratory Rate 16 20 Blood Pressure 167/71 H 176/98 H 163/90 H Pulse Oximetry 93 L 95 95 05/24/18 03:45 05/24/18 07:40 Temperature 98.0 F 98.7 F Pulse Rate 69 52 L Respiratory Rate 19 18 Blood Pressure 186/79 H 217/95 H Pulse Oximetry 97 95 Intake & Output 05/23/18 05/24/18 05/24/18 18:59 06:59 18:59 Intake Total 60 / 60 Balance 60 / 60 Intake: Oral 60 / 60 Other: # Voids 2 2 Narrative: GENERAL: Well-nourished, well-developed adult female in no obvious distress. SKIN: Warm and dry. HEAD: Atraumatic. Normocephalic. CARDIOVASCULAR: Regular rate and rhythm. RESPIRATORY: No accessory muscle use. Clear to auscultation. Breath sounds equal bilaterally. GASTROINTESTINAL: Abdomen soft, non-tender, non-distended. Positive bowel sounds. MUSCULOSKELETAL: Extremities without clubbing, cyanosis, or edema. No obvious deformities. No tenderness along lumbar spine. NEUROLOGICAL: Awake and alert. No obvious cranial nerve deficits. Motor grossly within normal limits. Normal speech. PSYCHIATRIC: Appropriate mood and affect; insight and judgment good. Results - Labs CBC & Chem 7: 05/20/18 13:57 05/20/18 13:57 Assessment and Plan - Assessment (1) Impaired mobility and ADLs Code(s): Z74.09 - Other reduced mobility Status: Acute (2) Requires assistance with activities of daily living (ADL) Code(s): Z74.1 - Need for assistance with personal care Status: Acute (3) Knowledge deficit on medication regimen Status: Acute (4) Intractable low back pain Code(s): M54.5 - Low back pain Status: Acute (5) Compression fracture of L1 lumbar vertebra Code(s): S32.010A - Wedge compression fracture of first lumbar vertebra, initial encounter for closed fracture Status: Acute (6) Lumbar stenosis with neurogenic claudication Code(s): M48.062 - Spinal stenosis, lumbar region with neurogenic claudication Status: Acute - Plan The 87-year-old female being admitted for intractable low back pain. Intractable low back pain - I suspect this is largely due to the patient's recent injury compounded on top of her severe stenosis based upon her most recent lumbar spine CT done within the last 10 days. I would like to give dexamethasone at this time however she seems to be on oral prednisone daily for now. - neurosurgery consultation to see if surgical intervention or direct spinal facet injections would be beneficial in this patient. Neurosurgery is recommending conservative/medical management for now. If this fails they will consider surgical intervention. - hold off on home mobic in light of possible intervention -MRI ordered by NSG - nasal calcitonin ordered for pain now that NSG concludes compression fx -PT ordered -currently recommending discharge with home health and aide. -[facility] consulted for placement of back brace to aid in stability. Recent UTI - finish macrobid tx, pansensitive e.coli epilepsy Peripheral neuropathy Continue home carbamazepine and gabapentin Hypertension Continue home metoprolol and spironolactone DVT prophylaxis: Lovenox Discussed with: Patient, nurse, , case management. Patient seen with Dr. Toribio Discharge planning: Will likely discharge home with home health and PT services when safe to do so. Rolling walker and bedside commode order placed.
[2018-05-24 13:20] VITALS: BP 197/89; PULSE 53; TEMP 98.8; O2SAT 94
--- NOTE | 2018-05-24 13:58 | P.DS ---
Date of admission: 05/20/18 16:26 Primary care physician: Mark Santizo MD Attending physician on discharge: Hardeep Toribio Anticipated date of discharge: 05/24/18 Brief History from admission: 87-year-old white female being admitted for intractable low back pain. Patient was in her usual state of health until about a little over week ago when she had a mechanical fall. She then proceeded to the emergency department 2 days later where she had a lumbar CT scan that showed severe spinal stenosis at L1 and S5. She was discharged home with Macrobid for a pansensitive E. coli UTI. Her urinary retention symptoms had improved significantly but her low back pain progressed with time and today she was not able to ambulate on her own. Her reticle printer is at the bedside and says she needed considerable assistance from multiple persons which is not her baseline. Her UTI from the last visit showed a pansensitive E. coli. Patient denies any dysuria or urinary urgency or hesitancy at this time. Emergency department she received morphine and a shot of Rocephin. The urine sample that was collected was a dirty catch. Family history: Not contributory at this time given the patient is 87 years old. DS: Diagnosis - Discharge Diagnosis (1) Impaired mobility and ADLs Status: Acute (2) Requires assistance with activities of daily living (ADL) Status: Acute (3) Knowledge deficit on medication regimen Status: Acute (4) Intractable low back pain Status: Acute (5) Compression fracture of L1 lumbar vertebra Status: Acute (6) Lumbar stenosis with neurogenic claudication Status: Chronic DS: Summary Hospital Course: The 87-year-old female being admitted for intractable low back pain. Due to the patient's recent injury compounded on top of her severe stenosis based upon her most recent lumbar spine CT done within the last 10 days. Neurosurgery consultation to see if surgical intervention or direct spinal facet injections would be beneficial in this patient. Neurosurgery is recommending conservative/ medical management for now. If this fails they will consider surgical intervention. PT ordered - recommending discharge with home health and aide. [facility] consulted for placement of back brace to aid in stability. - Time Spent with Patient Total time spent providing and/or coordinating discharge services: Less than 30 minutes - Quality: VTE Deep Vein Thrombosis/Pulmonary Embolism Present on Admission: No Exam Vital signs: Vital Signs 05/23/18 16:00 05/23/18 19:31 05/23/18 23:43 Temperature 97.6 F 97.6 F 97.5 F L Pulse Rate 50 L 54 L 60 Respiratory Rate 16 20 Blood Pressure 167/71 H 176/98 H 163/90 H Pulse Oximetry 93 L 95 95 05/24/18 03:45 05/24/18 07:40 05/24/18 12:00 Temperature 98.0 F 98.7 F 98.8 F Pulse Rate 69 52 L 53 L Respiratory Rate 19 18 18 Blood Pressure 186/79 H 217/95 H 197/89 H Pulse Oximetry 97 95 94 L Intake & Output 05/23/18 05/24/18 05/24/18 18:59 06:59 18:59 Intake Total 60 / 60 Balance 60 / 60 Intake: Oral 60 / 60 Other: # Voids 2 2 Narrative: GENERAL: Well-nourished, well-developed adult female in no obvious distress. SKIN: Warm and dry. HEAD: Atraumatic. Normocephalic. CARDIOVASCULAR: Regular rate and rhythm. RESPIRATORY: No accessory muscle use. Clear to auscultation. Breath sounds equal bilaterally. GASTROINTESTINAL: Abdomen soft, non-tender, non-distended. Positive bowel sounds. MUSCULOSKELETAL: Extremities without clubbing, cyanosis, or edema. No obvious deformities. No tenderness along lumbar spine. NEUROLOGICAL: Awake and alert. No obvious cranial nerve deficits. Motor grossly within normal limits. Normal speech. PSYCHIATRIC: Appropriate mood and affect; insight and judgment good. Results Procedures completed during hospitalization: none - Impressions ITS Impressions Abdomen/Pelvis CT 05/20/18 13:35 CONCLUSION: 1. 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 Additional characterization with pancreatic protocol MRI and MRCP may be useful. 2. Renal cysts and splenic cyst. 3. Hepatic steatosis. 4. Prominent degenerative arthritic changes in the lumbar spine Lumbar Spine MRI 05/21/18 00:00 CONCLUSION: 1. Mild acute compression fracture of L1 with superior endplate depression. 2. 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 3. Significant bilateral foraminal encroachment at L5-S1 4. No evidence of acute disc herniation Discharge Plan - Discharge Disposition Patient Disposition: /Home Health Service - Discharge Condition Condition: Stable - Discharge Order Discharge Orders: Discharge Order (Routine); Ordered 05/24/18 Ordered By: Elaina Sharma - Physicians Team Primary Care Provider: Mark Santizo Attending Provider: Hardeep Toribio Other Providers: Agustin Washington MD ; Rory Valadez
== END 2018-05-24 15:42 | disposition home health service (06) ==
LOC: NEPC 11:20 → INTOOBSV 16:26 → NEDA 16:26 → NEPGCP 20:05
PROVIDERS: ADMIT Hospitalist; ATTEND Hospitalist
DX: S32.010A Wedge compression fracture of first lumbar vertebra, initial encounter for closed fracture; D73.4 Cyst of spleen; G62.9 Polyneuropathy, unspecified; H91.90 Unspecified hearing loss, unspecified ear; K76.0 Fatty (change of) liver, not elsewhere classified; E03.9 Hypothyroidism, unspecified; N39.0 Urinary tract infection, site not specified; Z88.0 Allergy status to penicillin; M51.37 Other intervertebral disc degeneration, lumbosacral region; K86.2 Cyst of pancreas; B96.20 Unspecified Escherichia coli [E. coli] as the cause of diseases classified elsewhere; Z87.891 Personal history of nicotine dependence; W19.XXXA Unspecified fall, initial encounter; Z85.3 Personal history of malignant neoplasm of breast; M46.96 Unspecified inflammatory spondylopathy, lumbar region; G40.909 Epilepsy, unspecified, not intractable, without status epilepticus; I10 Essential (primary) hypertension; M48.07 Spinal stenosis, lumbosacral region; N28.1 Cyst of kidney, acquired; M48.062 Spinal stenosis, lumbar region with neurogenic claudication; E78.5 Hyperlipidemia, unspecified